=== PATIENT | male | born 1965 | race Caucasian/White ===

== ENCOUNTER → 2021-11-11 | Outpatient (CLI) | payer OTHER ==
[~2021-11-11] VITALS: Ht 170.2 cm; Wt 69.3 kg
[~2021-11-11] MED LIST: DEMADEX100 MG PO; KEPPRA 500MG500 MG PO; PROAIR HFA0.09 MG/AC IH; RENVELA800 MG PO; SEROQUEL50 MG; ZYLOPRIM 300MG300 MG PO
[2021-11-11 14:59] VITALS: BP 88/67; PULSE 86
[2021-11-11 15:45] VITALS: BP 110/77; PULSE 80
== END ==
LOC: COL.RAD 14:15
DX: Z49.01 Encounter for fitting and adjustment of extracorporeal dialysis catheter (principal)